=== PATIENT | female | born 2000 | race African-American/Black ===

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

== ENCOUNTER 2020-02-07 20:12 | Emergency (ER) | payer OTHER ==
[~2020-02-07] VITALS: Ht 149.9 cm; Wt 34.0 kg
[2020-02-07] MEDS ORDERED: IBUPROFEN 600MG TABLET PO STA (20:48)
[2020-02-07 21:29] LABS: BASOPHILS % 0.8 % (0.0-2.0); CHLORIDE 104 mEq/L (98-107); EOSINOPHILS % 2.5 % (0.0-5.0); HEMATOCRIT. 37.4 % (36.0-48.0); HEMOGLOBIN. 12.7 g/dL (12.0-16.0); LYMPHOCYTES % 40.5 % (20.0-50.0); MEAN CORPUSCULAR HEMOGLOBIN 31.6 pg (28.0-32.0); MEAN PLATELET VOLUME 7.6 fl (7.4-10.4); MONOCYTES % 8.3 % (2.0-8.0); NEUTROPHILS % 47.9 % (40.0-76.0); PLATELET 420 x1000/uL (130-400); RED BLOOD CELL COUNT 4.02 mill/uL (4.2-5.4); RED CELL DISTRIBUTION WIDTH 12.8 % (11.6-14.6)
[2020-02-07 22:08] VITALS: BP 100/65
== END 2020-02-07 22:09 | disposition home or self-care (01) ==
LOC: ER 20:12
DX: R07.89 Other chest pain (principal); E78.00 Pure hypercholesterolemia, unspecified
CPT/HCPCS: 36415; 71045; 80053; 81025; 85025; 93005; 99285